=== PATIENT | female | born 1965 | race Caucasian/White ===

== ENCOUNTER 2021-06-17 10:47 | Day surgery (SDC) | payer BC ==
[~2021-06-17 10:47] MED LIST: Lactated Ringers 1,000 ML IV SCH; Sodium Chloride 0.9% 10 ML Syringe FLUSH PRN; Sodium Chloride 0.9% 2.5 ML Syringe FLUSH PRN; Sodium Chloride 0.9% 20 ML SDV IV PRN
[2021-06-17] MEDS ORDERED: propofoL 50 ML ONE (12:16)
[2021-06-17] MEDS ORDERED: fentaNYL 100 MCG/2 ML SDV ONE (12:21)
[2021-06-17] MEDS ORDERED: Lidocaine 1% 5 ML VIAL ONE (12:21)
== END 2021-06-17 14:15 | disposition home or self-care (01) ==
LOC: MW.SDS 10:47
PROVIDERS: ATTEND Surgery
DX: Z12.11 Encounter for screening for malignant neoplasm of colon (principal); D12.8 Benign neoplasm of rectum; K29.50 Unspecified chronic gastritis without bleeding; K29.80 Duodenitis without bleeding; K20.0 Eosinophilic esophagitis; K42.9 Umbilical hernia without obstruction or gangrene; E66.9 Obesity, unspecified; I10 Essential (primary) hypertension; E78.00 Pure hypercholesterolemia, unspecified; Z79.899 Other long term (current) drug therapy; Z98.890 Other specified postprocedural states; Z68.35 Body mass index [BMI] 35.0-35.9, adult
CPT/HCPCS: 43239; 45380; J2704; J3010; J7120; 00813

== ENCOUNTER 2021-06-22 10:31 | Day surgery (SDC) | payer BC ==
[~2021-06-22 10:31] MED LIST changes: +Esmolol 100 MG/10 ML SDV ONE; -Lactated Ringers 1,000 ML IV SCH; +Lidocaine 1% 5 ML VIAL ONE; +Midazolam 1 MG/ML 2 ML SDV ONE; +Propofol 200 MG/20 ML SDV ONE; +Rocuronium Bromide 50 MG/5 ML Syringe ONE; -Sodium Chloride 0.9% 10 ML Syringe FLUSH PRN; -Sodium Chloride 0.9% 2.5 ML Syringe FLUSH PRN; -Sodium Chloride 0.9% 20 ML SDV IV PRN
[2021-06-22] MEDS ORDERED: Albuterol 0.083% 2.5 MG/3 ML Neb Soln NEB PRN (11:18)
[2021-06-22] MEDS ORDERED: Metoclopramide 10 MG/2 ML SDV IVPUSH PRN (11:18)
[2021-06-22] MEDS ORDERED: Naloxone 0.4 MG/ML SDV IVPUSH PRN (11:18)
[2021-06-22] MEDS ORDERED: Ondansetron 4 MG/2 ML SDV IVPUSH PRN (11:18)
[2021-06-22] MEDS ORDERED: HYDROmorphone 1 MG/ML Syringe IVPUSH PRN (11:18)
[2021-06-22] MEDS ORDERED: Bupivacaine 0.5% 30 ML SDV ONE (11:19)
[2021-06-22] MEDS ORDERED: Octyl 2-Cyanoacrylate 1 Tube ONE (11:19)
[2021-06-22] MEDS ORDERED: Dexamethasone 4 MG/ML 5 ML MDV ONE (12:18)
[2021-06-22] MEDS ORDERED: ceFAZolin 1 GM Vial ONE (12:20)
[2021-06-22] MEDS ORDERED: Sugammadex Sodium 200 MG/2 ML VIAL ONE (12:47)
[2021-06-22] MEDS ORDERED: Ondansetron 4 MG/2 ML SDV ONE (12:47)
[2021-06-22] MEDS ORDERED: Ketorolac 30 MG/ML SDV ONE (12:47)
[2021-06-22] MEDS ORDERED: fentaNYL 100 MCG/2 ML SDV ONE (13:06)
[2021-06-22] MEDS ORDERED: ePHEDrine 50 MG/ML SDV ONE (13:21)
[2021-06-22] MEDS: fentaNYL 100 MCG/2 ML SDV IVPUSH PRN ×2 (14:14→14:20)
== END 2021-06-22 15:47 | disposition home or self-care (01) ==
LOC: MW.SDS 10:31
PROVIDERS: ATTEND Surgery
DX: K38.1 Appendicular concretions (principal); K42.9 Umbilical hernia without obstruction or gangrene; I10 Essential (primary) hypertension; K21.9 Gastro-esophageal reflux disease without esophagitis; E66.9 Obesity, unspecified; Z98.890 Other specified postprocedural states; Z79.899 Other long term (current) drug therapy; E78.00 Pure hypercholesterolemia, unspecified
CPT/HCPCS: 44970; 49652; A9270; J0690; J1100; J1885; J2250; J2405; J2704; J3010; J3490; J7030; 00840